=== PATIENT | male | born 1955 | race Caucasian/White ===

== ENCOUNTER → 2016-09-23 | Day surgery (SDC) | payer OTHER ==
[~2016-09-23] MED LIST: CRESTOR10 MG; LASIX20 MG PO; LOTREL 10-40 M1 EACH; TOPROL XL PO
--- NOTE | ~2016-09-23 | OR ---
Unit #: [id number] #: [id number] Patient: TAWANA LAW [id number] [address] [place], [place] [address] [id number] O MR#: [id number] NAME: TAWANA LAW ROOM: Date of Procedure: 09/23/2016 Admission Date: 09/23/2016 Surgeon: James Almonte M.D. : 1955 Attending Physician: James Almonte M.D. Primary Care Physician: Carlita Patino M.D. OPERATIVE REPORT PRIMARY CARE PHYSICIAN Carlita Patino M.D. PREOPERATIVE DIAGNOSIS Colorectal cancer screening in an average-risk patient. PROCEDURES PERFORMED 1. Colonoscopy and biopsy. 2. Colonoscopy and polypectomy. POSTOPERATIVE DIAGNOSES 1. The patient had three sessile polyps, two were diminutive polyps in the ascending colon, removed using cold biopsy forceps. A third polyp was the hepatic flexure about 7 to 8 mm in size and was removed using snare polypectomy. 2. Rest of the examination up to cecum was normal. The quality of the prep was fair. RECOMMENDATIONS 1. Follow up the results of polyp histology. 2. Consider repeat colonoscopy in 5 years. SEDATION USED MAC. DESCRIPTION OF PROCEDURE Following detailed explanation of potential risks and complications of a colonoscopy, namely perforation, bleeding, and complications related to sedation, the patient was brought to GI lab and laid in the left lateral decubitus position. A digital rectal examination was performed, which was normal. Lubricated tip of the Olympus video colonoscope was inserted through the anus and advanced under direct vision. The scope was advanced past rectosigmoid into descending colon. No diverticula were seen in this area. The scope was then navigated past the transverse colon into the ascending colon, two small diminutive polyps were noted in this area in the mid and proximal ascending colon. These were removed using cold biopsy forceps. The scope tip was then navigated all the way up to cecum with visualization of the ileocecal valve and the appendiceal orifice. Preparation was excellent with good visualization and photodocumentation was obtained. Successive segments of the colonic mucosa were examined upon withdrawal. A third polyp was found in the hepatic flexure. This was about 7 to 8 mm in size. It was removed using snare polypectomy. Unit #: [id number] #: [id number] Patient: TAWANA LAW The polyp was retrieved and sent for histology. Excellent hemostasis was achieved and photodocumentation was obtained. No additional polyps were noted. The patient did not have any diverticulosis nor any hemorrhoids. The scope was then withdrawn and the patient returned to recovery area. He tolerated the procedure without any postprocedure complications. Dictated by... Brody Seth/joy TD: 09/23/2016 14:45 JOB #: [id number] CC: Carlita Patino M.D. OPERATIVE REPORT Page 1 of 1 X James Almonte MD X PROCEDURE OPERATIVE NOTE
== END | disposition home or self-care (01) ==
LOC: COPS 08:29
DX: Z12.11 Encounter for screening for malignant neoplasm of colon (principal); D12.3 Benign neoplasm of transverse colon; K63.89 Other specified diseases of intestine; I10 Essential (primary) hypertension; E78.5 Hyperlipidemia, unspecified; I25.10 Atherosclerotic heart disease of native coronary artery without angina pectoris; Z79.899 Other long term (current) drug therapy; Z95.5 Presence of coronary angioplasty implant and graft
CPT/HCPCS: 88305; J2250